=== PATIENT | male | born 1995 | race African-American/Black ===

== ENCOUNTER 2018-10-04 11:57 | Emergency (ER) | payer MEDICAID ==
[~2018-10-04] VITALS: Ht 188 cm; Wt 100.0 kg
[2018-10-04] MEDS ORDERED: KETOROLAC 60MG/2ML VIAL IM STA (14:50)
[2018-10-04] MEDS ORDERED: PENICILLIN G BENZATHINE 1,200,000 UNITS/2ML SYR IM ONE (15:00)
[2018-10-04] MEDS ORDERED: DEXAMETHASONE 10 MG/ML VIAL IM ONE (15:00)
[2018-10-04 17:06] VITALS: BP 131/78
== END 2018-10-04 17:11 | disposition home or self-care (01) ==
LOC: ER 14:01
DX: J36 Peritonsillar abscess (principal); J45.909 Unspecified asthma, uncomplicated; Z98.890 Other specified postprocedural states
CPT/HCPCS: 96372; 99284; J0561; J1100; J1885